=== PATIENT | female | born 1995 | race African-American/Black ===

== ENCOUNTER 2022-05-25 18:40 | Emergency (ER) | payer BC, SELFPAY ==
--- NOTE | ~2022-05-25 | XR_ITS ---
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 Covid +, no cardiac hx Comparison: None available. RESULT: Lines, tubes, and devices: None. Lungs and pleura: Clear. Cardiomediastinal silhouette: Normal. Other: No acute osseous or upper abdominal finding. IMPRESSION: No acute cardiopulmonary process. Reviewed, dictated and finalized at location K. ENGER TIRE INSPECTOR
--- NOTE | ~2022-05-25 | CT_ITS ---
EXAMINATION: CTA chest PE protocol DATE: 05/26/2022 00:19 INDICATION: Chest pain and shortness of breath, COVID 19 positive TECHNIQUE: Computed tomography angiography (CTA) of the chest was performed with 100 mL Omnipaque-350 intravenous contrast timed to evaluate the pulmonary arteries. Coronal maximum intensity projection 3D-reconstructions were created by the technologist. The dose-length product (DLP) was 142.20 mGy-cm. Automated exposure control and iterative reconstruction technique were employed. COMPARISON: None. FINDINGS: The pulmonary arteries are well-opacified. No pulmonary embolism is identified. The lungs a re free of acute opacities. No pleural effusion or pneumothorax. No pathologically enlarged thoracic lymph nodes are identified. The heart size is normal. Triangular soft tissue density of the anterior mediastinum is consistent with residual thymus. IMPRESSION: 1. No pulmonary embolism or acute cardiopulmonary abnormality. Reviewed, dictated and finalized at location A. [employer]
[2022-05-25 19:12] VITALS: BP 126/74; PULSE 102; RESP 18; TEMP 37.4; O2SAT 100
[2022-05-25 20:12] LABS: Influenza A QL RT-PCR Negative (Negative); Influenza B QL RT-PCR Negative (Negative); RSV RNA, RT-PCR Negative (Negative); SARS-CoV-2 RNA PCR Positive
--- NOTE | 2022-05-25 21:22 | ECG_ITS ---
Measurements Intervals [place] Rate: 110 P: 75 FL: 136 QRS: 56 QRSD: 80 T: 34 QT: 310 QTc: 421 Interpretive Statements SINUS TACHYCARDIA POSSIBLE LEFT ATRIAL ENLARGEMENT [-0.1mV P-WAVE IN V1/V2] NONSPECIFIC ST AND T-WAVE ABNORMALITY NO PREVIOUS ECG AVAILABLE FOR COMPARISON Electronically Signed On 05-26-2022 16:19:25 TABLE INSPECTOR by Tory Law M.D.
--- NOTE | 2022-05-25 21:24 | ED.GENADULT ---
HPI - General Adult General Chief complaint: Upper Respiratory Infection Stated complaint: flu s/sx Time Seen by Provider: 05/25/22 20:20 History of Present Illness HPI narrative: This is a 27-year-old female presenting to ED with flu-like symptoms. Symptoms started 3 days ago. They include rhinorrhea, cough, sore throat, headache, chest pain, shortness of breath and abdominal pain. chest pain is diffuse in overtired chest and feels like a tightness. Abdominal pain is also generalized. patient is not vaccinated against COVID but has had previous infections. She is not vaccinated against flu. Her daughter is also sick with similar symptoms. Patient has not taken anything for her symptoms. Related Data Allergies Allergy/AdvReac Type Severity Reaction Status Date / Time hydrocodone Allergy Unknown Verified 05/25/22 20:23 Review of Systems Review of Systems: CONSTITUTIONAL: Denies night sweats. EYES: No eye pain ENT: Denies rhinorrhea CARDIOVASCULAR: Denies palpitations RESPIRATORY: Denies hemoptysis GASTROINTESTINAL: Denies hematemesis GENITOURINARY: Denies hematuria. SKIN: Denies rash MUSCULOSKELETAL: Denies myalgia. NEUROLOGIC: Denies weakness. PSYCHIATRIC: Denies delusions PMFSH Past Medical History Medical History (Updated 05/26/22 @ 01:12 by Ryder Moreira MD) Anemia Social History Social History (Updated 05/25/22 @ 21:26 by Ryder Moreira MD) Social History: The patient denies alcohol cigarettes. She uses marijuana occasionally Exam Narrative: APPEARANCE: No apparent distress. Head: atraumatic. EYES: EOMI, NOSE: Atraumatic NECK: Trachea midline RESPIRATORY: No increased rate of breathing, clear auscultation bilaterally, no increased work of breathing CARDIOVASCULAR: mildly tachycardic, no peripheral edema ABDOMINAL: Non-distended, nontender, no guarding or rebound MUSCULOSKELETAl: No obvious deformities NEURO: Alert. Moving 4/4 extremities SKIN:: Warm, dry. Normal color PSYCHIATRIC: Normal affect Course Vital Signs Vital signs: Vital Signs Temperature 99.4 F 05/25/22 19:12 Pulse Rate 102 H 05/25/22 19:12 Respiratory Rate 18 05/25/22 19:12 Blood Pressure 126/74 05/25/22 19:12 Pulse Oximetry 100 05/25/22 19:12 Oxygen Delivery Room Air 05/25/22 19:12 Temperature 99.4 F 05/25/22 19:12 Pulse Rate 92 05/26/22 00:27 Respiratory Rate 14 05/26/22 00:27 Blood Pressure 122/62 05/26/22 00:27 Pulse Oximetry 100 05/26/22 00:27 Oxygen Delivery Room Air 05/25/22 23:45 Medical Decision Making MDM Narrative Medical decision making narrative: this is a 27-year-old presenting with flu-like symptoms. She is tachycardic. She has is positive for COVID-19.. She is low risk for DVT/PE. basic lab work including a D-dimer has been ordered. Chest x-ray and EKG been ordered. Patient given ibuprofen Motrin and a L of fluids. Chest x-rays negative for acute cardiopulmonary process. EKG interpretation: Rhythm [sinus], Rate 110, [place] -[normal], NC -[normal], QRS [narrow], QTC [normal], T waves -[negative for concerning inversions], ST Segments - [Negative for concerning elevations] Final interpretations: sinus tachycardia lab work showed a D-dimer of 1.17. CT PE has been ordered. CT PE was negative for acute findings. Patient will be discharged home with Motrin and Tylenol. She is instructed to return if her condition is worsening. Vital Signs Vital Signs: Vital Signs Temperature 99.4 F 05/25/22 19:12 Pulse Rate 102 H 05/25/22 19:12 Respiratory Rate 18 05/25/22 19:12 Blood Pressure 126/74 05/25/22 19:12 Pulse Oximetry 100 05/25/22 19:12 Oxygen Delivery Room Air 05/25/22 19:12 Temperature 99.4 F 05/25/22 19:12 Pulse Rate 92 05/26/22 00:27 Respiratory Rate 14 05/26/22 00:27 Blood Pressure 122/62 05/26/22 00:27 Pulse Oximetry 100 05/26/22 00:27 Oxygen Delivery Room Air 05/25/22 23:4
--- NOTE | 2022-05-25 21:47 | PC.NURSE ---
patient refused iv access
[2022-05-25 21:58] LABS: Basophils Percent Auto 0.2 % (0.2-1.2); Eosinophils Percent Auto 0.2 % (0-4.4); Hematocrit 35.5 % (37.0-47.0); Hemoglobin 11.2 g/dL (12.0-15.0); Immature Granulocyte Absolute 0.04 K/mm3 (0.00-0.031); Immature Granulocyte Percent A 0.5 % (0-0.5); Lymphocytes Absolute Auto 0.81 K/mm3 (0.9-3.2); Lymphocytes Percent Auto 9.8 % (18.3-44.2); Mean Corpuscular HGB Conc 31.5 g/dl (32-36); Mean Corpuscular Hemoglobin 23.3 pg (26-34); Mean Corpuscular Volume 73.8 fl (80-100); Mean Platelet Volume 10.3 fl (7.4-10.4); Monocytes Absolute Auto 0.9 K/mm3 (0.1-0.6); Monocytes Percent Auto 10.4 % (2.6-8.5); Neutrophils Absolute Auto 6.5 K/mm3 (1.3-6.7); Neutrophils Percent Auto 78.9 % (45.5-73.1); Platelet Count Result 299 k/mm3 (150-375); Red Blood Count 4.81 M/mm3 (4.2-5.4); Red Cell Distribution Width 13.4 % (11.5-14.5); White Blood Count 8.2 K/mm3 (4.5-10.0)
[2022-05-25 22:08] LABS: Anion Gap 5 mmol/L (8-16); Blood Urea Nitrogen 8 mg/dL (7-17); Calcium 9.1 mg/dL (8.4-10.2); Carbon Dioxide 27 mmol/L (22-30); Chloride 104 mmol/L (98-107); Estimated CRCL calculation 97 ml/min; Estimated Glomerular Filt Rate > 60; Glucose 123 mg/dL (65-110); Potassium 3.6 mmol/L (3.4-5.0); Sodium 136 mmol/L (137-145)
[2022-05-25 22:22] LABS: Hypochromasia 1+ (NORMAL); Platelet Estimate Adequate (Adequate)
[2022-05-25 22:23] LABS: Anisocytosis 1+ (NORMAL); Microcytosis 1+ (NORMAL); Ovalocytes 1+ (NORMAL); Poikilocytosis 1+ (NORMAL)
[2022-05-25 22:24] LABS: Schistocytes None Seen (NORMAL)
[2022-05-25 22:40] LABS: D Dimer 1.17 ug/mL (<0.48)
[2022-05-25] MEDS: ACETAMINOPHEN 500 MG TABLET 1000 MG PO (22:43)
[2022-05-25] MEDS: IBUPROFEN 400 MG TABLET 800 MG PO (22:44)
[2022-05-25 22:57] LABS: NT Pro B Type Natriuretic Pept 14 pg/mL (5-100); Troponin I < 0.012 ng/mL (0.000-0.034)
--- NOTE | 2022-05-25 23:08 | PC.NURSE ---
patient out at nurses station complaining that she had to wait for 30 minutes for her medications and that this rn is rude.
[2022-05-26 00:27] VITALS: BP 122/62; PULSE 92; RESP 14; O2SAT 100
[2022-05-26 01:28] VITALS: BP 110/57; PULSE 85; RESP 22; O2SAT 100
== END 2022-05-26 01:33 | disposition home or self-care (01) ==
PROVIDERS: Emergency Medicine; Emergency Provider Emergency Medicine
DX: U07.1 COVID-19 (principal); Z28.310 Unvaccinated for COVID-19; D64.9 Anemia, unspecified; R00.0 Tachycardia, unspecified; R94.31 Abnormal electrocardiogram [ECG] [EKG]
CPT/HCPCS: 36415; 71045; 71275; 80048; 83735; 83880; 84484; 85025; 85380; 87637; 93005; 99284; A9270; Q9967